=== PATIENT | male | born 1975 | race African-American/Black ===

== ENCOUNTER 2017-12-17 11:36 | Emergency (ER) | payer OTHER ==
[~2017-12-17] VITALS: Ht 182.9 cm; Wt 122.0 kg
[2017-12-17] MEDS ORDERED: CYCLOBENZAPRINE 10MG TABLET PO ONE (12:30)
[2017-12-17] MEDS ORDERED: KETOROLAC 60MG/2ML VIAL IM ONE (12:30)
[2017-12-17 13:57] VITALS: BP 142/88
== END 2017-12-17 13:58 | disposition home or self-care (01) ==
LOC: ER 13:41
DX: M54.41 Lumbago with sciatica, right side (principal)
CPT/HCPCS: 96372; 99283; J1885

== ENCOUNTER 2018-02-07 09:43 | Emergency (ER) | payer OTHER ==
[~2018-02-07] VITALS: Ht 182.9 cm; Wt 125.0 kg
[2018-02-07 09:47] VITALS: BP 141/84
[2018-02-07] MEDS ORDERED: KETOROLAC 60MG/2ML VIAL IM ONE (10:15)
== END 2018-02-07 11:00 | disposition home or self-care (01) ==
LOC: ER 09:43
DX: M54.41 Lumbago with sciatica, right side (principal); J45.909 Unspecified asthma, uncomplicated
CPT/HCPCS: 96372; 99283; J1885